=== PATIENT | male | born 1960 | race Caucasian/White ===

== ENCOUNTER 2016-04-28 11:21 | Emergency (ER) | payer OTHER ==
[2016-04-28 13:10] LABS: RED BLOOD COUNT 4.31 M/UL (4.20-5.50)
== END 2016-04-28 15:45 | disposition home or self-care (01) ==
LOC: ER1 11:21
PROVIDERS: Emergency Medicine
DX: E87.5 Hyperkalemia (principal); R10.9 Unspecified abdominal pain; J90 Pleural effusion, not elsewhere classified; I10 Essential (primary) hypertension; I50.9 Heart failure, unspecified; J45.909 Unspecified asthma, uncomplicated; F17.210 Nicotine dependence, cigarettes, uncomplicated
CPT/HCPCS: 36415; 71010; 80053; 81001; 82550; 82553; 83690; 83874; 84484; 85025; 93005; 99285